=== PATIENT | male | born 1995 | race Two or more races ===

== ENCOUNTER 2023-10-30 15:52 | Emergency (ER) | payer OTHER, SELFPAY ==
--- NOTE | ~2023-10-30 | XR_ITS ---
EXAMINATION: XR RIBS, LEFT CLINICAL INFORMATION: Left rib pain. COMPARISON: None available. TECHNIQUE: 3 views of the left ribs were obtained. FINDINGS: Lungs are clear. No consolidation, pneumothorax, or pleural effusion. The cardiomediastinal silhouette and pulmonary vasculature are normal. Osseous structures are unremarkable. Ribs are intact. No fractures are identified. XR/XR ribs LT min 3V w CXR1V IMPRESSION: No acute cardiopulmonary disease. No left rib fracture.
[2023-10-30 16:00] VITALS: BP 177/96; PULSE 92; O2SAT 98
[2023-10-30 16:39] VITALS: BP 130/73; PULSE 82; RESP 14; TEMP 36.6; O2SAT 98; BMI 32.7
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
[2023-10-30 20:05] VITALS: BP 137/81; PULSE 75; RESP 16; TEMP 37; O2SAT 98
[2023-10-30] MEDS: Ketorolac Tromethamine 30 MG/ML VIAL IM (20:08)
[2023-10-30] MEDS: Lidocaine 4 % Patch ADH..PATCH 1 PATCH TRANSDERMA (20:08)
[2023-10-30 20:15] VITALS: BP 137/81; PULSE 75; RESP 16; TEMP 37; O2SAT 98
== END 2023-10-30 20:16 | disposition home or self-care (01) ==
PROVIDERS: Emergency Provider Emergency Medicine
DX: Z04.1 Encounter for examination and observation following transport accident (principal); R07.81 Pleurodynia
CPT/HCPCS: 71101; 96372; 99284; J1885

== ENCOUNTER 2023-12-01 10:49 | Emergency (ER) | payer OTHER, SELFPAY ==
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
[2023-12-01 11:25] VITALS: BP 177/83; PULSE 85; RESP 16; TEMP 36.7; O2SAT 98; BMI 25.1
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
[2023-12-01 15:12] VITALS: BP 147/77; PULSE 76; RESP 16; TEMP 36.7; O2SAT 99
== END 2023-12-01 15:13 | disposition home or self-care (01) ==
PROVIDERS: Emergency Provider Emergency Medicine
DX: S20.212A Contusion of left front wall of thorax, initial encounter (principal); R07.81 Pleurodynia; X50.9XXA Other and unspecified overexertion or strenuous movements or postures, initial encounter; Y93.89 Activity, other specified; Y99.8 Other external cause status
CPT/HCPCS: 71101; 99283

== ENCOUNTER 2024-01-28 17:46 | Emergency (ER) | payer OTHER, SELFPAY ==
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
[2024-01-28 18:49] VITALS: BP 135/79; PULSE 81; RESP 19; TEMP 36.6; O2SAT 98; BMI 36.9
[2024-01-28 21:28] VITALS: BP 135/67; PULSE 58; RESP 16; TEMP 37; O2SAT 98
[2024-01-28 22:13] VITALS: BP 135/67; PULSE 58; RESP 16; TEMP 37; O2SAT 98
== END 2024-01-28 22:15 | disposition home or self-care (01) ==
PROVIDERS: Emergency Provider Emergency Medicine; PCP Internal Medicine
DX: S46.011A Strain of muscle(s) and tendon(s) of the rotator cuff of right shoulder, initial encounter (principal); V43.52XA Car driver injured in collision with other type car in traffic accident, initial encounter; Y93.89 Activity, other specified; Y92.414 Local residential or business street as the place of occurrence of the external cause; Y99.9 Unspecified external cause status
CPT/HCPCS: 73030; 99283

== ENCOUNTER 2024-01-30 12:03 | Outpatient (REF) | payer BC, SELFPAY ==
[2024-01-30 12:17] LABS: MANUAL DIFF FLAG NO
[2024-01-30 12:34] LABS: Basophils Percent Auto 0.3 % (0-2); Eosinophils Percent Auto 0.4 % (0-4); Hematocrit 42.7 % (42.0-52.0); Hemoglobin 14.4 g/dl (14.0-18.0); Imm Gran Abs Auto 0.03 X10*3/uL (0.00-0.03); Imm Gran Pct Auto 0.4 % (0.0-0.4); Lymphocytes Absolute Auto 1.7 X10*3/uL (1.2-4.9); Lymphocytes Percent Auto 25.2 % (20-40); Mean Corpuscular HGB Conc 33.7 g/dl (31.0-36.0); Mean Corpuscular Hemoglobin 28.3 pg (27.0-33.0); Mean Corpuscular Volume 83.9 fL (80.0-98.0); Mean Platelet Volume 9.2 fL (9.4-12.4); Monocytes Absolute Auto 0.6 X10*3/uL (0.1-1.2); Monocytes Percent Auto 8.2 % (2-11); Neutrophils Absolute Auto 4.5 x10*3/uL (2.0-8.3); Neutrophils Percent Auto 65.5 % (45-73); Platelet Count 209 X10*3/uL (160-400); Red Blood Count 5.09 X10*6/uL (4.60-5.80); Red Cell Distribution Width 13.1 % (11.0-16.0); White Blood Count 6.8 X10*3/uL (4.8-10.8)
[2024-01-30 13:16] LABS: Alanine Aminotransferase 20 U/L (0-40); Albumin Level 4.6 g/dL (3.5-5.0); Alkaline Phosphatase 65 U/L (39-117); Anion Gap 11 (12-20); Aspartate Amino Transferase 19 U/L (5-37); Blood Urea Nitrogen 16 mg/dL (9-16); Calcium 9.8 mg/dL (8.4-10.2); Carbon Dioxide 27 mmol/L (22-29); Chloride 108 mmol/L (96-108); Cholesterol 167 mg/dL (<200); Estimated Glomerular Filt Rate > 60; Glucose Random 95 mg/dL (60-115); HDL Cholesterol 48 mg/dL (>40); LDL Cholesterol Calculated 101 mg/dL (<100); Potassium 4.1 mmol/L (3.3-5.1); Sodium 142 mmol/L (135-145); Total Protein 7.5 g/dL (6.5-8.0); Triglycerides 90 mg/dL (<150)
== END 2024-01-30 12:04 | disposition home or self-care (01) ==
LOC: HO.LAB 12:03
PROVIDERS: PCP Internal Medicine; Visit Provider Internal Medicine
DX: Z00.00 Encounter for general adult medical examination without abnormal findings (principal); E66.9 Obesity, unspecified; I10 Essential (primary) hypertension
CPT/HCPCS: 36415; 80053; 80061; 85025

== ENCOUNTER 2024-02-05 11:31 | Emergency (ER) | payer BC, SELFPAY ==
--- NOTE | ~2024-02-05 | US_ITS ---
EXAMINATION: US SCROTUM CLINICAL INFORMATION: Left testicular pain. COMPARISON: None available. TECHNIQUE: A sonogram of the scrotum was performed assessing schuster-scale appearance and color Doppler flow. Spectral Doppler analysis of the arterial and venous flow were performed in the testes bilaterally. FINDINGS: RIGHT: Right testicle measures 2.9 x 1.9 x 2.6 cm, volume 7.3 mL. No focal testicular parenchymal lesions are visualized. Spectral Doppler analysis of the arterial and venous flow is within normal limits in the right testis. Right epididymal head is normal in size. Small fluid in the right scrotum. No right hydrocele is seen. Right epididymal Doppler flow is within normal limits LEFT: Left testicle measures 3.4 x 1.6 x 2.5 cm, volume 7 mL. No focal testicular parenchymal lesions are visualized. Spectral Doppler analysis of the arterial and venous flow is normal in the left testis. Left epididymal head is normal in size. Small left scrotal fluid. No Varicocele is seen. Left epididymal Doppler flow is normal. US/US scrotum IMPRESSION: Small fluid in bilateral scrotum. No significant abnormality is otherwise demonstrated by ultrasound. Clinically correlate.. Short-term follow-up ultrasound for reassessment as clinically indicated. Electronically signed by: Ezra Alcocer MD 02/05/2024 02:16 PM EDT
--- NOTE | ~2024-02-05 | US_ITS ---
EXAMINATION: US SCROTUM CLINICAL INFORMATION: Left testicular pain. COMPARISON: None available. TECHNIQUE: A sonogram of the scrotum was performed assessing schuster-scale appearance and color Doppler flow. Spectral Doppler analysis of the arterial and venous flow were performed in the testes bilaterally. FINDINGS: RIGHT: Right testicle measures 2.9 x 1.9 x 2.6 cm, volume 7.3 mL. No focal testicular parenchymal lesions are visualized. Spectral Doppler analysis of the arterial and venous flow is within normal limits in the right testis. Right epididymal head is normal in size. Small fluid in the right scrotum. No right hydrocele is seen. Right epididymal Doppler flow is within normal limits LEFT: Left testicle measures 3.4 x 1.6 x 2.5 cm, volume 7 mL. No focal testicular parenchymal lesions are visualized. Spectral Doppler analysis of the arterial and venous flow is normal in the left testis. Left epididymal head is normal in size. Small left scrotal fluid. No Varicocele is seen. Left epididymal Doppler flow is normal. US/US scrotum doppler IMPRESSION: Small fluid in bilateral scrotum. No significant abnormality is otherwise demonstrated by ultrasound. Clinically correlate.. Short-term follow-up ultrasound for reassessment as clinically indicated. Electronically signed by: Ezra Alcocer MD 02/05/2024 02:16 PM EDT
[2024-02-05 11:39] VITALS: BP 130/64; PULSE 98; RESP 14; TEMP 36.6; O2SAT 100; BMI 28.0
--- NOTE | 2024-02-05 11:40 | ED.ABDPAIN ---
HPI - Abdominal Pain General Chief Complaint: Urogenital-Male Stated Complaint: l side pain Time Seen by Provider: 02/05/24 19:49 Source: patient Mode of arrival: ambulatory Limitations: no limitations History of Present Illness ED Provider: Diaz Johnson HPI narrative: 28 yold male with no pmh presents to the ED for left testicular pain for one week without any trauma or urinary symptoms. Patient denies any nausea, vomiting, flank pain, fever, or chills. Patient works at [employer] and does lot of heavy lifting and states testicular groin pain worse on movement. Patient also states difficulty staying erect while having sex. Patient denies any abdominal pain, nausea, or vomitting. Related Data Previous Rx's ?Medication ?Instructions ?Recorded cyclobenzaprine 5 mg tablet 5 mg PO Q8H PRN muscle spasm #7 10/30/23 tabs lidocaine 5 % topical patch 1 patch topical DAILY #15 ea 10/30/23 (Lidoderm) naproxen 500 mg tablet 500 mg PO Q8-12H PRN pain (scale 10/30/23 score 1-3) #20 tabs cyclobenzaprine 5 mg tablet 5 mg PO TID PRN muscle spasm #10 12/01/23 tabs ibuprofen 600 mg tablet 600 mg PO Q8H PRN pain #20 tabs 12/01/23 lidocaine 5 % topical patch 1 patch topical DAILY #15 ea 12/01/23 cyclobenzaprine 10 mg tablet 10 mg PO TID PRN muscle spasm #20 01/28/24 tabs ibuprofen 600 mg tablet 600 mg PO Q6H PRN pain #30 tabs 01/28/24 naproxen 500 mg tablet 500 mg PO BID PRN pain 7 days #14 02/05/24 tabs Allergies Allergy/AdvReac Type Severity Reaction Status Date / Time No Known Allergies Allergy Verified 02/05/24 11:40 [No Known Allergies*] Review of Systems Review of Systems Left testicular pain Yes all other systems are reviewed and are negative [facility] Past Medical History Medical History (Updated 02/06/24 @ 00:01 by Mervat Felix) No pertinent past medical history Social History Social History (Updated 01/28/24 @ 22:08 by Connie Tabares DO) Patient Tobacco Use Status: Tobacco use Unknown Advance Directives: No Advance Directives Information Provided: No Do you have a plan to hurt others: No Plan Physical Exam ED Vital Signs: Vital Signs - 24 hr 02/05/24 11:39 Temperature 97.8 F Pulse Rate 98 Respiratory Rate 14 Blood Pressure 130/64 Pulse Oximetry 100 Oxygen Delivery Method Room Air BMI result Body Mass Index 28.0 Const General: cooperative, healthy appearing, comfortable, no acute distress, well developed, alert, awake and Physically active Orientation/consciousness: patient oriented x3 HENMT Head: Yes normal to inspection, Yes No palpable skull fracture present, Yes normocephalic and Yes atraumatic Throat: Yes posterior oropharynx normal, Yes tonsils normal and Yes uvula midline Eyes General: appearance normal, both eyes and all related structures Neck Neck: Yes normal visual inspection, Yes full ROM, Yes no lymphadenopathy, Yes no meningeal signs, Yes trachea midline, Yes supple, No anterior neck swelling and No tender Chest Chest palpation & inspection: normal inspection of the chest and normal palpation of entire chest wall Resp Effort & Inspection: normal respiratory effort and able to speak in complete sentences Auscultation: clear to auscultation bilaterally Cardio Jugular venous distension: no JVD Heart sounds: S1 normal heart sound present and S2 normal heart sound present GI Inspection: Yes normal to inspection Palpation (GI): Soft to palpation, not firm, nontender, no guarding and not rigid General: No CVA tenderness and Yes no CVA tenderness Male General Exam: Yes normal external exam Penis: normal penis and uncircumcised Meatus: meatus normal Scrotum: scrotum normal Testes: testicular tenderness on the left Back/Spine/Pelvis Other: Negative for testicular swelling, groin swelling, penile lesions, or penile discharge. Negative for hernia Back: no CVA tenderness, No CVA tenderness and No back tenderness Skin General skin exam: no rashes or lesions noted, elasticity normal and turgor normal Neuro General: patient oriented x3, gait normal, tone normal, moves all extremities, Normal light touch and pain sensation, no meningeal signs, no focal motor deficits, CN's II-XI intact bilaterally and normal sensation to monofilament Extrem General: Yes normal to inspection, Yes full ROM and Yes capillary refill normal Psych Appearance: grossly normal, well kempt and not disheveled Course Course Course Narrative: This is a Rapid Medical Examination (RME) performed by Beatriz Lafleur PA-C in triage. Full HPI, ROS, assessment and treatment plan per primary provider in the Main ED. 28 yo [place]amb[place] speaking male presents to the ER for evaluation of left sided testicular pain that started yesterday, preceded by 1 week of weird sensation in the testicles. left testicular tenderness but no swelling per report. pain radiating up into the abdomen. no urinary symptoms or discharge. Plan: US scrotum w/ doppler, UA, CT/NG Medical Decision Making Medical Decision Making [facility] Narrative: 28-year-old male presents ED for left testicular pain for 1 week without any trauma. She denies any urinary symptoms. Patient denies any nausea, vomiting, or abdominal pain. Abdominal exam is benign. Negative CVA flanks. Patient states not having sex outside his marriage. Faithful to his and denies any symptoms. Patient denies any STD symptoms. Patient does not want empiric treatment. Patient explained worrisome signs and informed to return to the ED immediatel. Not suspecting torsion, epididymitis, kidney stones, UTI, pyelonephritis, incarcerated hernia, or hematoma. Differential Diagnosis Differential Diagnoses: The differential diagnosis associated with the presentation includes (Testicular) Admission/Observation Consideration of admission/observation: Escalation of care including admission/observation considered Lab Data [facility] Lab Attestation statement: I reviewed the patient's lab results. Labs: Lab Results 02/05/24 Range/Units 19:00 Urine Color Yellow Urine Appearance Clear Urine pH 6.0 (5.0-9.0) Ur Specific [place] 1.020 (1.005-1.025) Urine Protein Negative (Neg-Trace) mg/dL Urine Glucose (UA) Negative (Negative) mg/dL Urine Ketones Negative (Negative) mg/dL Urine Blood Negative (Negative) Urine Nitrite Negative (Negative) Ur Leukocyte Esterase Negative (Negative) Chlam trachomat DNA PCR NOT DETECTED (Not Detect.) N.gonorrhoeae DNA (PCR) NOT DETECTED (Not Detect.) Independent Interpretation I performed an independent interpretation of an: Ultrasound Radiology Impression Discussion of test interpretation with radiology: I have reviewed the radiologist's reading. Independent Historian Clinical information obtained from an independent historian. History obtained from or confirmed by: Other (patient) External Record Review External record reviewed: Other (prior vistsi) Discharge Plan Discharge Clinical Impression: Testicular pain Patient Disposition: Home, Self-Care Instructions: Testicle Pain (ED), Scrotal Pain (ED) Additional Instructions: Recommend follow-up with primary care provider and urologist. Return to the ED for any severe testicular pain, penile discharge, penile lesions, dysuria, hematuria, abdominal pain, flank pain, fever, chills, bulging in the groin or testicle, or any other concerning symptoms. Prescriptions: New naproxen 500 mg tablet 500 mg PO BID PRN (Reason: pain) 7 Days Qty: 14 0RF No Action cyclobenzaprine 5 mg tablet 5 mg PO Q8H PRN (Reason: muscle spasm) Qty: 7 0RF lidocaine [Lidoderm] 5 % adhesive patch,medicated 1 patch topical DAILY Qty: 15 0RF Rx Instructions: leave on most painful area for up to 12 hrs naproxen 500 mg tablet 500 mg PO Q8-12H PRN (Reason: pain (scale score 1-3)) Qty: 20 0RF ibuprofen 600 mg tablet 600 mg PO Q8H PRN (Reason: pain) Qty: 20 0RF cyclobenzaprine 5 mg tablet 5 mg PO TID PRN (Reason: muscle spasm) Qty: 10 0RF lidocaine 5 % adhesive patch,medicated 1 patch topical DAILY Qty: 15 0RF Rx Instructions: leave on most painful area for up to 12 hrs cyclobenzaprine 10 mg tablet 10 mg PO TID PRN (Reason: muscle spasm) Qty: 20 0RF ibuprofen 600 mg tablet 600 mg PO Q6H PRN (Reason: pain) Qty: 30 0RF Referrals: [facility] [place] [facility] [Provider Group] (Testicular pain) Stand Alone Forms: Work/School Release Interventions: ED Discharge Assessment Last Done: 02/05/24 21:57 Discharge Date/Time: 02/05/24 21:58 Print Language: Mozambican
[2024-02-05 19:22] LABS: Appearance Urine Clear; Color Urine Yellow; Glucose Urine UA Negative (Negative); Leukocyte Esterase Urine Negative (Negative); Nitrite Urine Negative (Negative); Urine Blood Negative (Negative); Urine Ketones Negative (Negative); Urine Protein Negative (Neg-Trace)
[2024-02-05 21:57] VITALS: BP 130/64; PULSE 98; RESP 14; TEMP 36.6; O2SAT 100
[2024-02-06 05:38] LABS: CT PCR NOT DETECTED (Not Detect.); NG PCR NOT DETECTED (Not Detect.)
== END 2024-02-05 21:58 | disposition home or self-care (01) ==
PROVIDERS: Physician Assistant; Emergency Provider Emergency Medicine; PCP Internal Medicine
DX: N50.812 Left testicular pain (principal); R10.30 Lower abdominal pain, unspecified; N52.9 Male erectile dysfunction, unspecified; Z79.899 Other long term (current) drug therapy
CPT/HCPCS: 76870; 81003; 87491; 87591; 93975; 99283; 99284

== ENCOUNTER 2024-02-27 07:58 | Outpatient (AMB) | payer MEDICAID, SELFPAY ==
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
[2024-02-27 08:12] VITALS: BMI 27.9
== END 2024-02-27 08:34 | disposition home or self-care (01) ==
PROVIDERS: PCP Internal Medicine; Visit Provider Physician Assistant
DX: M75.101 Unspecified rotator cuff tear or rupture of right shoulder, not specified as traumatic (principal)
CPT/HCPCS: 99204

== ENCOUNTER → 2024-02-27 07:58 | Outpatient (BNVA) | payer MEDICAID, SELFPAY | PROVIDERS: PCP Internal Medicine; Visit Provider Physician Assistant | DX: M75.101 Unspecified rotator cuff tear or rupture of right shoulder, not specified as traumatic (principal) | CPT/HCPCS: 99212 ==

== ENCOUNTER 2024-03-25 09:56 | Outpatient (AMB) | payer MEDICAID, SELFPAY ==
--- NOTE | 2024-03-25 11:08 | A.OFFVIS_ITS ---
Intake Visit Reasons: [facility] ER-testicular pain Intake Note: New Patient is Present for Follow Up [facility]- Testicular Pain Urology Medication: None Antibiotic Allergies: None Blood Thinners: None [facility] ER: 02/05/2024- Testicular Pain Imagin02/05/2024- Scrotum Ultrasound Family History: Prostate Cancer? Yes, multiple uncles Bladder Cancer? 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 He is a patient of Dr. Correia. 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 Discussed inguinal issues COUNTS INCLUDE 234 BEDS AT THE [facility] Medical History (Updated 03/25/24 @ 15:21 by Carlos Rivero MD) Testicular pain No pertinent past medical history Family History Paternal Uncle Prostate cancer Social History Alcohol intake: current Alcohol intake frequency: holidays/special occasions only Patient Tobacco Use Status: Tobacco use Unknown Current occupational status: unemployed Current occupation: right hand dominant Review of Systems Const Denies chills and Denies fever(s) Card Reports no additional complaints and Denies syncope Resp Denies cough GI Denies abdominal pain and Denies heartburn Reports as per HPI and Denies change in libido Neuro Denies syncope Psych Denies change in libido Endo Denies change in libido Physical Exam Const General: cooperative, healthy appearing, comfortable and no acute distress Orientation/consciousness: patient oriented x3 HEENT Face and sinus: Yes normal facial exam Mouth: moist mucous membranes Neck Neck: Yes normal visual inspection, Yes full ROM and Yes trachea midline Chest Chest palpation & inspection: normal inspection of the chest Resp Effort & Inspection: normal respiratory effort, able to speak in complete sentences and no respiratory distress GI Inspection: Yes normal to inspection Back/Spine/Pelvis Cervical Spine: normal cervical lordosis Thoracic/Lumbar Spine: thoracic and lumbar spine normal to inspection Skin General skin exam: no rashes or lesions noted Neuro General: patient oriented x3, gait normal, tone normal and moves all extremities Extrem General: Yes normal to inspection and Yes capillary refill normal Assessment & Plan Assessment & Plan (1) Testicular pain: Code(s): N50.819 - Testicular pain, unspecified Category: Medical Plan p.r.n. Patient Instructions: Imaging studies, laboratory and physical exam results were discussed and reviewed in detail. No major barriers to patient understanding were identified. An opportunity to ask questions regarding the treatment plan was provided. All questions were answered. The patient expressed understanding and agreement with the above treatment plan. The patient is aware they should contact our office by phone for worsening of their current condition or the appearance of new urologic symptoms. Compliance is encouraged with any medications and followup testing that is ordered. It is a privilege to participate in the urologic care of your patient. If you have any questions or concerns regarding treatment for the above conditions, or other urologic issues, please do not hesitate to contact me. The office telephone contact is [phone]. This note is constructed using voice recognition software. While every effort has been made to ensure accuracy plastics process hand errors may have been included. Yours sincerely, Dr Carlos Rivero MD, [facility] Urology Providers of Expert, Compassionate Care for the Genitourinary System Coding Level of Care Code New Pt Level 3 (76220) Diagnoses Testicular pain N50.819
== END 2024-03-25 11:40 | disposition home or self-care (01) ==
PROVIDERS: PCP Internal Medicine; Visit Provider Urology
DX: N50.819 Testicular pain, unspecified (principal)
CPT/HCPCS: 99203

== ENCOUNTER → 2024-03-25 09:56 | Outpatient (BNVA) | payer MEDICAID, SELFPAY | PROVIDERS: PCP Internal Medicine; Visit Provider Urology | DX: N50.819 Testicular pain, unspecified (principal) | CPT/HCPCS: 99202 ==

== ENCOUNTER → 2024-04-12 11:04 | Outpatient (BNVA) | payer SELFPAY | PROVIDERS: PCP Internal Medicine; Visit Provider Physician Assistant Medical | DX: Z02.79 Encounter for issue of other medical certificate (principal) ==